=== PATIENT | female | born 1985 | race Caucasian/White ===

== ENCOUNTER 2018-06-27 15:37 | Emergency (ER) | payer MEDICAID, OTHER ==
[2018-06-27] MEDS ORDERED: LORazepam 1 MG TAB PO ONE (16:05)
--- NOTE | 2018-06-27 16:05 | EDPHY ---
H & P Stated Complaint: laceration left wrist, intentional, patient not answering some questions Source: Patient, Family, RN/MD Exam Limitations: Clinical condition - Personal History LMP (Females 10-55): Now Current Tetanus Diphtheria and Acellular Pertussis (TDAP): Unsure Tetanus Vaccine Date: 07/2014 - Medical/Surgical History Hx Asthma: No Hx Chronic Respiratory Disease: No Hx Diabetes: No Hx Cardiac Disease: No Hx Renal Disease: No Hx Cirrhosis: No Hx Alcoholism: No Hx HIV/AIDS: No Hx Splenectomy or Spleen Trauma: No Other PMH: hx migraines, asthma (no meds), mild ppd, c/s x 2, dehiscence and infection after 1st c/s - Social History Smoking Status: Never smoked Time Seen by Provider: 06/27/18 15:52 HPI/ROS: HPI: This is a 33-year-old female who presents with Chief Complaint: Intentional cutting of wrist, suicidal thoughts Location: Psychiatric Quality: Left wrist cutting and suicidal thoughts Duration: Unknown Signs and Symptoms:+ bleeding, no decreased range of motion, no radiation, no weakness, + pain Timing: Acute Severity: Moderate Context: Patient is right-hand dominant, presents accompanied by her and 2 daughters, with intentionally cutting her left wrist with a razor prior to arrival. Patient is very reserved and noncommunicative. She is crying during the examination. She is unsure of her tetanus status. She will not answer any questions regarding why she cut herself or any psychiatric questions. Nurse reports to me that patient is from [place] and so are her parents. She is extremely depressed that she is unable to visit her parents or her parents to visit her. [place] is on the no visit list from the [place]. Patient had a previous unsuccessful suicide attempt 2 years ago with intentional drug overdose. After this failed suicide attempt 2 years ago, patient never sought psychiatric treatment or took any psychiatric medications. Modifying Factors: Direct pressure directly to her left wrist Comment: ROS: A comprehensive 10 system review of systems is otherwise negative aside from elements mentioned in the history of present illness. MEDICAL/SURGICAL/SOCIAL HISTORY: Medical history: migraines, asthma (no meds), mild depression, c/s x 2, dehiscence and infection after 1st c/s Surgical history: Denies Social history: with children. Family history noncontributory. CONSTITUTIONAL: Tearful, poor eye contact, tidy, adult female, awake and alert , no obvious distress HEENT: Atraumatic and normocephalic, PERRL, EOMI. Nares patent; no rhinorrhea; no nasal mucosal edema. Tympanic membranes clear. Oropharynx clear, no exudate and moist pink mucosa. Airway patent. No lymphadenopathy. No meningismus. Cardiovascular: Normal S1/S2, regular rate, regular rhythm, without murmur rub or gallop. PULMONARY/CHEST: Symmetrical and nontender. Clear to auscultation bilaterally. Good air movement. No accessory muscle usage. ABDOMEN: Soft, nondistended, nontender, no rebound, no guarding, no peritoneal signs, no masses or organomegaly. No CVAT. EXTREMITIES: 2/2 pulses, strength 5/5, left WRIST: Extension to 70, flexion to 80, radial deviation to 20 degree, ulnar deviation to 30, no scaphoid tenderness, no tenderness over ulnar styloid, no tenderness over radial styloid. Approximately 7 cm vertical deep laceration at the left wrist crease noted with no active bleeding. NEUROLOGICAL: no focal neuro deficits. GCS 15. SKIN: Warm and dry, no erythema. no rash. Good capillary refill. PSYCH: Poor eye contact, no flight of ideas, poor insight and judgment, no auditory hallucinations, no visual hallucinations, + suicidal ideation with a plan, no homicidal ideation, no paranoia (Rhoda,Terra) Constitutional: Initial Vital Signs Temperature (C) 36.9 C 06/27/18 15:39 Heart Rate 128 H 06/27/18 15:39 Respiratory Rate 16 06/27/18 15:39 Blood Pressure 120/87 H 06/27/18 15:39 O2 Sat (%) 97 06/27/18 15:39 Allergies/Adverse Reactions: No Known Allergies Allergy (Unverified 07/01/13 20:32) Home Medications: Medication Instructions Recorded Ibuprofen [Motrin (*)] 600 mg PO Q6 PRN #30 tab 09/17/14 Sennosides/Docusate Sodium 1 - 2 tab PO BID #30 tab 09/17/14 [Senokot-S] Medical Decision Making Procedures: Procedure: Laceration repair. Verbal consent was obtained from the patient. The 8 cm, simple, vertical laceration on the left wrist crease was anesthetized in the usual fashion using 10 mL of 1% lidocaine with epinephrine. The wound was irrigated, draped and explored to its base with a gloved finger. There were no deep structures involved. No tendon injury was identified. The wound was repaired with #12, 4- 0 Prolene in simple interrupted pattern. Xeroform and clean sterile dressing applied. The procedure was performed by myself. (Afsaneh Duong) ED Course/Re-evaluation: Vital signs reviewed and show tachycardia upon arrival. Tetanus booster ordered and local anesthesia provided Irrigated copiously and laceration repaired with #12 sutures. Clean, sterile dressing applied. 1600: Placed on M1 hold as patient is severely depressed and suicidal. Labs and urine drug screen ordered. p.o. Ativan 1 mg ordered but patient politely refused. 1700: Mental health cooky packer, Camilla in to evaluate patient. 1745: Laboratory studies reviewed and grossly unremarkable. 1750: End of shift. Signed over to Dr. Calderon pending mental health recommendation and final disposition. This patient was seen under the supervision of my secondary supervising physician. I evaluated care for this patient with attending. (Afsaneh Duong) I took over care of this patient at 5:30 p.m., this patient is on an M1 hold for suicidal ideation and suicide attempt. She does have a history of depression. She is currently being evaluated by Behavioral Health. Likely admission for further psychiatric management. 8:15 p.m., the patient has been seen and evaluated by Behavioral Health. The patient will be admitted to [facility] for inpatient psychiatric management. I have filled out the appropriate transfer paperwork. The patient' s remaining emergency department course under my care has been uneventful. The patient was transferred in stable condition. (Silvina Calderon) Differential Diagnosis: Differential diagnosis includes but is not limited to major depression, anxiety disorder, schizophrenia, bipolar disorder, intoxicant use, suicidal ideation, psychosis, dorian. (Afsaneh Duong) - Data Points Laboratory Results: Laboratory Results 06/27/18 16:50 06/27/18 16:50 06/27/18 06/27/18 06/27/18 19:20 16:50 16:50 WBC RBC Hgb Hct MCV MCH MCHC RDW Plt Count MPV Neut % (Auto) Lymph % (Auto) Robeson % (Auto) Eos % (Auto) Baso % (Auto) Nucleat RBC Rel Count Absolute Neuts (auto) Absolute Lymphs (auto) Absolute Monos (auto) Absolute Eos (auto) Absolute Basos (auto) Absolute Nucleated RBC Immature Gran % Immature Gran # Sodium 139 mEq/L mEq/L (135-145) Potassium 3.7 mEq/L mEq/L (3.5-5.2) Chloride 106 mEq/L mEq/L (97-110) Carbon Dioxide 22 mEq/l mEq/l (22-31) Anion Gap 11 mEq/L mEq/L (6-14) BUN 9 mg/dL mg/dL (7-23) Creatinine 0.7 mg/dL mg/dL (0.6-1.0) Estimated GFR > 60 Glucose 90 mg/dL mg/dL (70-100) Calcium 9.2 mg/dL mg/dL (8.5-10.4) Beta HCG, Qual NEGATIVE Urine Opiates Screen NEGATIVE (NEGATIVE) Urine Barbiturates NEGATIVE (NEGATIVE) Ur Phencyclidine Scrn NEGATIVE (NEGATIVE) Ur Amphetamine Screen NEGATIVE (NEGATIVE) U Benzodiazepines Scrn NEGATIVE (NEGATIVE) Urine Cocaine Screen NEGATIVE (NEGATIVE) U Marijuana (THC) Screen NEGATIVE (NEGATIVE) Ethyl Alcohol < 10 mg/dL mg/dL (0-10) 06/27/18 16:50 WBC 6.20 10^3/uL 10^3/uL (3.80-9.50) RBC 4.88 10^6/uL 10^6/uL (4.18-5.33) Hgb 14.2 g/dL g/dL (12.6-16.3) Hct 40.3 % % (38.0-47.0) MCV 82.6 fL fL (81.5-99.8) MCH 29.1 pg pg (27.9-34.1) MCHC 35.2 g/dL g/dL (32.4-36.7) RDW 12.2 % % (11.5-15.2) Plt Count 225 10^3/uL 10^3/uL (150-400) MPV 10.4 fL fL (8.7-11.7) Neut % (Auto) 71.6 % % (39.3-74.2) Lymph % (Auto) 22.1 % % (15.0-45.0) Robeson % (Auto) 5.2 % % (4.5-13.0) Eos % (Auto) 0.3 % L % (0.6-7.6) Baso % (Auto) 0.6 % % (0.3-1.7) Nucleat RBC Rel Count 0.0 % % (0.0-0.2) Absolute Neuts (auto) 4.44 10^3/uL 10^3/uL (1.70-6.50) Absolute Lymphs (auto) 1.37 10^3/uL 10^3/uL (1.00-3.00) Absolute Monos (auto) 0.32 10^3/uL 10^3/uL (0.30-0.80) Absolute Eos (auto) 0.02 10^3/uL L 10^3/uL (0.03-0.40) Absolute Basos (auto) 0.04 10^3/uL 10^3/uL (0.02-0.10) Absolute Nucleated RBC 0.00 10^3/uL 10^3/uL (0-0.01) Immature Gran % 0.2 % % (0.0-1.1) Immature Gran # 0.01 10^3/uL 10^3/uL (0.00-0.10) Sodium Potassium Chloride Carbon Dioxide Anion Gap BUN Creatinine Estimated GFR Glucose Calcium Beta HCG, Qual Urine Opiates Screen Urine Barbiturates Ur Phencyclidine Scrn Ur Amphetamine Screen U Benzodiazepines Scrn Urine Cocaine Screen U Marijuana (THC) Screen Ethyl Alcohol Medications Given: Discontinued Medications Diphtheria/Tetanus/Acell Pertussis (Boostrix) 0.5 ml IM .ONCE ONE Stop: 06/27/18 16:15 Last Admin: 06/27/18 16:28 Dose: 0.5 ml Lorazepam (Ativan) 1 mg PO EDNOW ONE Stop: 06/27/18 16:06 Last Admin: 06/27/18 16:30 Dose: Not Given Departure - Departure Disposition: Other Psych, Not [place] Clinical Impression: Intentional self-harm by razor blade, Suicidal behavior with attempted self- injury, Severe major depression without psychotic features Laceration of left wrist without complication Qualifiers: Encounter type: initial encounter Qualified Code(s): S61.512A - Laceration without foreign body of left wrist, initial encounter Additional Instructions: Wound Care Follow-Up: Removal of sutures in [ 10-14 ] days. Suture removal is complimentary in uncomplicated cases. Infection or abnormal findings would require reevaluation by the MD. In that case, you may be billed.
[2018-06-27] MEDS ORDERED: TDAP ADULT 0.5 ML INJ (BOOSTRIX) IM ONE (16:14)
[2018-06-27 17:09] LABS: PLATELET COUNT 225 10^3/uL (150-400)
--- NOTE | 2018-06-27 19:08 | ASMTTLCEVL ---
TLC Evaluation - Basic Information Evaluation Start Date and 06/27/2018 05:30 PM Time Hospital Status Answers: M1 Hold 72-hr M1 Hold Start Date 06/27/2018 04:00 PM and Time Patient statement Notes: " I tried to kill myself." Narrative Notes: Pt is a 33 year old female who presented to [facility] with her after she took a razor blade and cut her wrist in a suicide attempt. Pt states she is under a lot of stress because of the war in [place], where she is from, as she is unable to travel to see her family and they are unable to come here. [facility] is on the no visit list from the [facility]. Pt has been in the [place] since 2007 and is here with her on a student visa. Pt states is she leaves to go to [place], she will not be able to return to the [facility]. Pt stated, " Today, after watching the news, I saw people beheaded, then saw hate speech and it was too much." Pt reports she is constantly worrying about her family and is upset about all of the people being killed in [place]. Pt states she feels like she needs to be perfect all the time, living here in the [facility] [facility] [place] because she is Jehovah'S Witness and states she is always being judged. Pt stated earlier today she did feel suicidal and went to the bathroom with the intention of killing herself but her became alarmed, "He noticed I was walking differently and followed me in there and asked me what I was doing and I said this, then I cut myself." Pt stated she feels shame about attempting suicide today as it is against her hinduism but also because she states she always very positive. Pt stated, " I decided to do it fast and not think about it because I would not do it for amish purposes." Diagnosis History Notes: Pt reports she may have been dx with depression while at [facility] 2 years ago. Pt has a hx of post depression. Prior suicide attempts Notes: Pt had 1 prior suicide attempt 2 years ago by OD. Prior hospitalizations Notes: [facility] 2 years ago. Treatment Responses Notes: Pt did not do any follow-up care. History of violence Notes: None reported. Therapist: None Psychiatrist: None Medications (name, dosage, route, freq uency) Notes: None reported Allergies/Reaction Notes: Nka Sleep Notes: Wnl Appetite Notes: Pt reports a decreased appetite today and stated, " Just today I don't feel like I want to eat." Medical/Surgical history Notes: Per [facility] records, pt has a hx of migraines and Asthma (does not take meds) Substance use history (frequency, intensity, his tory, duration) Notes: Pt denied any etoh or drug us hx. Family composition Notes: Pt has 2 sisters and 2 brothers who live in [place]. Pt's parents also live in [place]. Pt is and as 3 children. Need for family Answers: No participation in patient's care Family psychiatric/substance abuse history Notes: Unable to obtain this information Developmental history Notes: Pt stated her childhood "was amazing." Pt grew up in [place] and moved to the [place] in 2007. Pt denied any concussions. Pt denied any childhood abuse hx. Abuse concerns Answers: None Marital status/children Notes: Pt has been for 10 years and has 3 children, ages 10, 7 and 3.5 Living situation Notes: Pt lives at [facility]. Sexual history/orientation Notes: Pt identifies as heterosexual. Peer support/family strengths Notes: Pt staets she has a good support sysyem and stated, " Actually, I'm a pretty positive person but sometimes things are bigger than me." Education level/history Notes: Pt is in graduate school. Work history Notes: Unable to assess Notes: None reported. Legal Notes: Unable to assess. Anabaptist/Spiritual Notes: Pt is a Jehovah'S Witness. Leisure Notes: Unable to assess. Collateral Notes: Patient's strengths Answers: Honest (Please select at least TWO strengths): Insightful Intelligent Supportive Family TLC Evaluation - Mental Status Exam Appearance: Answers: Appropriate Eye Contact: Answers: Intermittent Mood: Answers: Depressed Affect: Answers: Flat Guarded Sad Tearful Behavior: Answers: Cooperative Crying Speech: Answers: Relevant Logical Clear Coherent Thought Process: Answers: Organized Oriented Alert Intact Insight: Answers: Good Judgement: Answers: Poor Depression Answers: Crying Spells Signs/Symptoms: Flat Affect Hopelessness Sad Mood Withdrawn Anxiety Signs/Symptoms Answers: Generalized Anxiety Hallucinations: Answers: None Pt reported to have Answers: Yes suicidal/self-injuring ideation/behavior? Pt reported to be making Answers: Yes suicidal/self-injuring threats? Pt reported to have Answers: No aggression/assault ideation/behavior? Pt reported to be making Answers: No aggression/assault threats? Pt exhibits inability to Answers: No care for self/grave disability? Ideation/behavior is Answers: No chronic? Patient has a specific Answers: No plan? Pt has access to means to Answers: No execute the plan? Ideation involves Answers: No serious/lethal intent? Ideation has Answers: No delusional/hallucinatory content? History of Answers: Yes suicidal/self-injuring ideation, behavior, or threats? History of Answers: No aggressive/assaultive ideation, behavior, or threats? History of serious Answers: No physical harm to self/others while in treatment setting? TLC Evaluation - Suicide/Homicide Risk Suicide Risk Factors: Answers: < 20 or > 40 Years of Age Hopelessness Impulsivity Inadequate Social Support Major Depression Homicide/violence risk Answers: None factors: Current Suicide Ideation When asked if she was currently suicidal pt Frequency: responded, " I don't know. I feel empty." Current Suicidal Ideation Answers: Yes in the Past 48 Hours? Current Suicidal Ideation Answers: Yes in the Past Month? Suicide Internal Answers: Absence of Psychosis Protective Factors: Anabaptist Beliefs Suicide External Answers: Responsibility to Protective Factors: Children Ranking of patient's Answers: Severe suicidal risk: Ranking of patient's Answers: Low homicidal risk: TLC Evaluation - Wrap-up AXIS I Diagnosis (include DSM-V and ICD-10 codes), must also be entered in [employer], which is the source of truth. Notes: Major Depressive Disorder, recurrent, severe 296.33 (F33.2) Evaluation End Date and 06/27/2018 07:00 PM Time (HH:HANS): Date Signed: 06/27/2018 07:07 PM Electronically Signed By:Camilla Peters
[2018-06-27] MEDS ORDERED: ACETAMINOPHEN 500 MG TAB PO ONE (19:57)
[2018-06-27 21:19] VITALS: BP 119/70
--- NOTE | 2018-06-27 21:41 | ASMTTCLDSP ---
TLC Discharge Disposition Disposition: Answers: Transfer Discharge Concerns/Recommendations: Notes: In consultation with [facility] ED physician, Silvina Calderon MD concurred that pt appears to meet 27-65 criteria requiring psychiatric hospitalization as pt appears to be at risk of harm to self due to a mental illness condition. . Pt was read the Patient Rights and Responsibilities Statement on 06/27/18 at 1900 , original placed on chart, and was given photocopy of Rights. Pt signed the Patient Rights. For Transfers, Accepting [facility] Facility: For Transfers, Accepting Dr. Wiseman Psychiatrist: For Transfers, Reason 3N at [facility] Patient is Being Transferred: Date Signed: 06/27/2018 09:40 PM Electronically Signed By:Camilla Peters
[2018-06-27] MEDS ORDERED: ONDANSETRON DISINTEGRATING 4 MG TAB ONE (21:54)
[2018-06-27] MEDS ORDERED: LORazepam 0.5 MG TAB ONE (21:54)
[2018-06-27] MEDS ORDERED: LORazepam 0.5 MG TAB PO ONE (22:04)
[2018-06-27] MEDS ORDERED: ONDANSETRON DISINTEGRATING 4 MG TAB PO ONE (22:04)
== END 2018-06-27 22:08 ==
PROC: 0HQEXZZ Repair Left Lower Arm Skin, External Approach (ICD-10-PCS; principal; 2018-06-27)
DX: R45.851 Suicidal ideations (principal); F32.2 Major depressive disorder, single episode, severe without psychotic features; S61.512A Laceration without foreign body of left wrist, initial encounter; X78.8XXA Intentional self-harm by other sharp object, initial encounter; Z91.5 Personal history of self-harm; Z23 Encounter for immunization
CPT/HCPCS: 80305; G0480